=== PATIENT | male | born 1945 | race Caucasian/White ===

== ENCOUNTER 2017-11-17 08:00 | Day surgery (SDC) | payer MEDICARE, BC ==
[~2017-11-17 08:00] MED LIST: Bupivacaine 0.25%/EPINEPHrine 1:200,000 10 ML SDV INJECT ONE; Lactated Ringers 1,000 ML IV SCH; Midazolam 1 MG/ML 2 ML SDV ONE; Propofol 200 MG/20 ML SDV ONE; ceFAZolin 2 GM in Premix Bag 1 BAG IV ONE; ceFAZolin/Dextrose,Iso-Osmotic 2 GM/50 ML Duplex Bag IV ONE; fentaNYL 100 MCG/2 ML SDV ONE; traMADol 50 MG Tab PO PRN
--- NOTE | 2017-11-17 08:29 | PCM.PREANE ---
Preanesthetic Assessment - Procedure Proposed Procedure: bilateral upper lid Blepharoplasties for excess skin - Anesthesia/Transfusion/Family Hx Anesthesia History: No Prior Anesthesia Transfusion History: No Prior Transfusion(s) - Review of Systems Other: Reports: None - Physical Assessment NPO Status Date: 11/16/17 NPO Status Time: 20:00 O2 Sat by Pulse Oximetry: 96 Respiratory Rate: 16 Vital Signs: Last Vital Signs Temp 36.2 C 11/17/17 08:16 Pulse 60 11/17/17 08:16 Resp 16 11/17/17 08:16 BP 132/68 11/17/17 08:16 Pulse Ox 96 11/17/17 08:16 Height: 5 ft 10 in Weight: 90.718 kg ASA Class: 1 Mental Status: Alert & Oriented x3 Airway Class: Mallampati = 2 Dentition: Reports: Normal Dentition Thyro-Mental Finger Breadths: 3 Mouth Opening Finger Breadths: 3 ROM/Head Extension: Full - Allergies Allergies/Adverse Reactions: Allergies Allergy/AdvReac Type Severity Reaction Status Date / Time No Known Allergies Allergy Verified 11/14/17 08:48 - Acknowledgements Anesthesia Type Planned: MAC Pt an Appropriate Candidate for the Planned Anesthesia: Yes Alternatives and Risks of Anesthesia Discussed w Pt/Guardian: Yes Pt/Guardian Understands and Agrees with Anesthesia Plan: Yes PreAnesthesia Questionnaire HEENT History: Reports: Hard of Hearing, Other (See Below) Other HEENT History: ester hearing aids, reading glasses, hx fx nose - Past Surgical History Head Surgeries/Procedures: Reports: None - SUBSTANCE USE Smoking Status *Q: Never Smoker Recreational Drug Use History: No - HOME MEDS Home Medications: Home Meds . [No Known Home Meds] 11/14/17 [History] - CURRENT (IN HOUSE) MEDS Current Meds: Current Medications Cefazolin Sodium/Dextrose 2 gm (/ Premix) 50 mls @ 100 mls/hr IV ONETIME ONE Stop: 11/17/17 08:29 Lactated Ringer's (Ringers, Lactated) 1,000 mls @ 125 mls/hr IV ASDIRECTED TALIA Last Admin: 11/17/17 08:21 Dose: 125 mls/hr Tramadol HCl (Ultram) 50 mg PO Q4H PRN PRN Reason: Pain Discontinued Medications Bupivacaine HCl/Epinephrine Bitart (Marcaine 0.25%/Epinephrine 1:200,000) 10 ml INJECT ONETIME ONE Stop: 11/17/17 08:01 Cefazolin Sodium/Dextrose (Ancef) Confirm Administered Dose 2 gm IV .STK-MED ONE Stop: 11/17/17 07:28 Fentanyl (Sublimaze) Confirm Administered Dose 100 mcg .ROUTE .STK-MED ONE Stop: 11/17/17 07:37 Midazolam HCl (Versed 1 Mg/Ml) Confirm Administered Dose 2 mg .ROUTE .STK-MED ONE Stop: 11/17/17 07:38 Propofol (Diprivan 20 Ml) Confirm Administered Dose 200 mg .ROUTE .STK-MED ONE Stop: 11/17/17 07:37
[2017-11-17] MEDS ORDERED: Bupivacaine 25%/EPINEPHrine/PF 0 ML ONE (08:32)
[2017-11-17] MEDS ORDERED: Bupivacaine 25%/EPINEPHrine/PF 30 ML ONE (08:46)
[2017-11-17] MEDS ORDERED: Dexamethasone/Tobramycin 0.1-0.3% Ophth Oint 3.5 GM Tube ONE (09:12)
[2017-11-17] MEDS ORDERED: Tetracaine 0.5% Ophth Soln 15 ML Bottle ONE (09:12)
[2017-11-17] MEDS ORDERED: Dexamethasone/Tobramycin 0.1-0.3% Ophth Susp 2.5 ML Bottle ONE (09:12)
[2017-11-17] MEDS ORDERED: Octyl 2-Cyanoacrylate 1 Tube ONE (09:13)
--- NOTE | 2017-11-17 10:24 | PCM48HPAN ---
Post Anesthesia Note - EVALUATION WITHIN 48HRS OF ANESTHETIC Vital Signs in Normal Range: Yes Patient Participated in Evaluation: Yes Respiratory Function Stable: Yes Airway Patent: Yes Cardiovascular Function Stable: Yes Hydration Status Stable: Yes Pain Control Satisfactory: Yes Nausea and Vomiting Control Satisfactory: Yes Mental Status Recovered: Yes Resp Rate: 16
--- NOTE | 2017-11-17 10:35 | PCM.OPNOTE ---
- General Post-Op/Procedure Note Date of Surgery/Procedure: 11/17/17 Operative Procedure(s): bilateral upper lid blepharoplasties for excess skin Pre Op Diagnosis: dermatochalasis bilateral upper eyelids Post-Op Diagnosis: Same Anesthesia Technique: Local, MAC Primary Surgeon: Chantell Grant Complications: None Condition: Good
--- NOTE | 2017-11-21 08:25 | OR ---
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 PROCEDURE: Bilateral upper lid blepharoplasties for excess skin weighing down lids. ANESTHESIA: Local MAC. INDICATIONS: Mr. Gonzales is a 72-year-old gentleman with bilateral upper eyelid excess skin weighing down lids. Risks and benefits of excision of this were discussed with him and he was in agreement to proceed. The risks were including, but not limited to bleeding, infection, damage to underlying or overlying structures, possible need for future interventions, possible scarring. PROCEDURE IN DETAIL: After informed consent was obtained and placed on the chart, the patient was brought to the operating theater and laid in supine position. After adequate local MAC anesthesia was obtained, the area was prepped and draped, a time-out was completed to confirm side and site. Attention was then paid to marking bilaterally and once adequately symmetrically marked, pinch test was completed to confirm and then 0.25% Marcaine with epinephrine was injected into the area. After adequate anesthesia, the planned incision was then excised in an elliptical fashion bilaterally. Once adequately excised, meticulous hemostasis was obtained and the skin was closed using deep 5- 0 Monocryl stitch and a running 6-0 Prolene for the skin. These were Steri- Stripped in place and attention was paid to the contralateral eye. Symmetrical procedure was completed here until adequate excision and symmetry was appreciated. The wounds were then meticulously hemostased with Bovie electrocautery and closed using deep 5-0 Monocryl stitch and a running 6-0 Prolene for the skin. These were Steri-Stripped in place. The patient tolerated this well. All counts, needles were correct at the end of the case. FOLLOWUP INSTRUCTIONS: The patient will see us in 1 week, sooner if any problems, questions, or concerns. HEGGTHE / MODL /[id number]
== END 2017-11-17 10:58 | disposition home or self-care (01) ==
LOC: MW.SDS 08:00
PROVIDERS: ATTEND Plastic Surgery
DX: H02.834 Dermatochalasis of left upper eyelid (principal); H02.831 Dermatochalasis of right upper eyelid
CPT/HCPCS: 15823; A9270; J0690; J2250; J7120; J2704; J3010

== ENCOUNTER 2024-06-02 15:41 | Emergency (ER) | payer MEDICARE, BC ==
[2024-06-02] MEDS ORDERED: Sodium Chloride 0.9% 10 ML Syringe FLUSH PRN (16:04)
[2024-06-02 16:24] LABS: BASOPHILS ABSOLUTE AUTO 0.01 K/uL (0.00-0.20); BASOPHILS PERCENT AUTO 0.1 % (0.0-1.0); EOSINOPHILS PERCENT AUTO 7.8 % (0.0-6.0); HEMATOCRIT 40.9 % (42.0-52.0); HEMOGLOBIN 13.7 g/dL (14.0-18.0); IMMATURE GRAN ABSOLUTE AUTO 0.03 K/uL (0.00-0.05); IMMATURE GRAN PERCENT AUTO 0.4 % (0.0-0.4); LYMPHOCYTES ABSOLUTE AUTO 3.37 K/uL (1.00-4.80); LYMPHOCYTES PERCENT AUTO 43.9 % (24.0-44.0); MEAN CORPUSCULAR HEMOGLOBIN 30.8 pg (28.0-32.0); MEAN CORPUSCULAR HGB CONC 33.5 g/dL (32.0-36.0); MEAN CORPUSCULAR VOLUME 91.9 fL (83.0-99.0); MEAN PLATELET VOLUME 9.9 fL (9.4-12.4); MONOCYTES ABSOLUTE AUTO 0.73 K/uL (0.00-0.80); MONOCYTES PERCENT AUTO 9.5 % (0.0-8.0); NEUTROPHILS ABSOLUTE AUTO 2.93 K/uL (1.80-7.70); NEUTROPHILS PERCENT AUTO 38.3 % (41.0-71.0); PLATELET COUNT,PLT 224 K/uL (150-400); RED BLOOD CELL COUNT 4.45 M/uL (4.52-5.90); WHITE BLOOD CELL COUNT,WBC 7.67 K/uL (3.9-11.3)
[2024-06-02] MEDS: Ondansetron 4 MG/2 ML SDV IVPUSH ONE (16:39)
[2024-06-02] MEDS: Morphine 2 MG/ML SYRINGE IVPUSH ONE (16:42)
[2024-06-02 16:45] LABS: A/G RATIO 0.9 (0.9-1.6); ALBUMIN 3.4 g/dL (3.4-5.0); BILIRUBIN TOTAL 0.6 mg/dL (0.2-1.0); C-REACTIVE PROTEIN 1.1 mg/dL (<0.3); CALCIUM 9.1 mg/dL (8.5-10.1); CARBON DIOXIDE,CO2 25.1 mmol/L (21.0-32.0); CREATININE 1.3 mg/dL (0.8-1.3); EST CRCL DRUG DOSING (CG) 46.79 mL/min; POTASSIUM,K 4.5 mmol/L (3.5-5.1)
[2024-06-02] MEDS: Acetaminophen 500 MG Tab PO ONE (16:48)
[2024-06-02] MEDS: Iopamidol 755 MG/ML 500 ML Multipack Bottle IVPUSH STA (18:09)
== END 2024-06-02 19:54 | disposition home or self-care (01) ==
LOC: MW.ED 15:41
DX: C05.9 Malignant neoplasm of palate, unspecified (principal); Z85.819 Personal history of malignant neoplasm of unspecified site of lip, oral cavity, and pharynx; Z79.899 Other long term (current) drug therapy
CPT/HCPCS: 36415; 70487; 80053; 85025; 85652; 86140; 96374; 96375; 99283; A9270; J2270; J2405; Q9967